=== PATIENT | male | born 1965 | race Caucasian/White ===

== ENCOUNTER 2025-11-03 11:48 | Inpatient (IN) ==
--- NOTE | 2025-11-03 12:14 | Emergency Department Note ---
Impression & Plan Pulmonary edema, New onset left bundle branch block (LBBB), Elevated troponin I level, CARTAGENA (dyspnea on exertion) ED Provider Note NAME: FEDERICO GRISSOM AGE: 60 SEX: M : 1965 ARRIVES VIA: Walk-In INFORMANT: Patient, ED PROVIDER(S): Jose C Carr DO CHIEF COMPLAINT: Shortness of breath HPI: The patient is a 60-year-old male who presented to the emergency department for an evaluation of shortness of breath. The patient's been experiencing shortness of breath with exertion over the last several days. The patient states he does have some shortness of breath with lying flat. The patient had an appointment with his family doctor today. He went to see his family doctor and was sent to the emergency department for further evaluation. The patient denies having any fever or cough. He denies having any leg swelling. The patient had an EKG done which prompted the patient to be sent to the emergency department. ROS: See above HPI for pertinent positives & negatives. A total of 10 systems reviewed and were otherwise negative. PAST MEDICAL HISTORY: See Below PAST SURGICAL HISTORY: See Below FAMILY HISTORY: See Below SOCIAL HISTORY: See Below HOME MEDICATIONS: See Below ALLERGIES: See Below VITALS: See Below PHYSICAL EXAMINATION: GENERAL: Patient is awake alert in no acute distress patient is resting comfortably and showing no signs of anxiety EYES: The conjunctivae are clear. The pupils are round and reactive. EARS, NOSE, MOUTH AND THROAT: The nose is without any evidence of any deformity. NECK: The neck is nontender and supple. RESPIRATORY: Normal respiratory effort is noted there is no evidence of wheezing rhonchi or rales CARDIOVASCULAR: Regular rate and rhythm noted there no murmurs rubs or gallops normal S1 normal S2. GASTROINTESTINAL: The abdomen is soft. Abdomen is nontender. MUSCULOSKELETAL/EXTREMITIES: There is no evidence of gross deformity full range of motion is noted in the hips and shoulders. SKIN: There is no obvious evidence of any rash. There are no petechiae, pallor or cyanosis noted. NEUROLOGIC: Patient is awake alert and oriented x3 MEDICAL DECISION MAKING: The patient is a 60-year-old male who presented to the emergency department for an evaluation of difficulty breathing. The patient's been experiencing dyspnea on exertion as well as some orthopnea over the course of the last several weeks. The patient was seen as an outpatient by his newly established primary care physician. He had an abnormal EKG and was sent to the emergency department. The patient was found of a new onset left bundle branch block. The patient was found have an elevated creatinine although it is unclear what his baseline was before this. I discussed the patient's laboratory and radiographic studies with him. He was treated with beta-blockers Lasix and aspirin in the emergency department. He still requires significant blood pressure management. Given his findings I do feel that he would be a better candidate for inpatient management. I discussed his condition with the on-call [facility] hospitalist group as well as the on-call [facility] master cosmetologist. They have agreed to evaluate the patient in the emergency department for further management and disposition. Triage Nursing notes reviewed. Prior medical records reviewed Vital Signs: reviewed and remarkable for elevated blood pressure. Differential diagnosis: Reactive airway disease, pneumonia, pneumothorax, COPD, CHF, infections, cardiac ischemia, pulmonary embolism, musculoskeletal, gastrointestinal, as well as other pathologies. ER treatment provided: See below Diagnostics interpreted by me: ECG: EKG was obtained in the emergency department. My interpretation is sinus tachycardia at 105 bpm. PVCs were noted. Left bundle branch block pattern was appreciated. This was compared to a tracing from May 19, 2006. The left bundle branch block is new compared to the previous tracing. Cardiac Monitoring: An order was placed for continuous cardiac monitoring. The monitor shows a rate of 85 bpm with sinus rhythm. Laboratory studies: As stated above and show below. Imaging studies: See below. Radiographic imaging was reviewed by myself Consultation(s): I discussed this case with Dr. Rodriguez who is on-call for the [facility] hospitalist group. I discussed this case with Dr. Jorgensen who is on for the [facility] cardiology group. ED COURSE: Procedures: none Critical Care: I have personally spent greater than 35 minutes of critical care time in the direct management of this patient. This includes bedside care, interpretation of diagnostic studies, and testing, discussion with consultants, patient, and family members, and other required patient management activities. This 35 minutes is in excess of all separately billable procedures. Past Med/Surg History Problem List (Updated 11/03/25 @ 14:12 by TRISHA Calloway) Hypertensive emergency CARTAGENA (dyspnea on exertion) (Acute) Elevated troponin I level (Acute) New onset left bundle branch block (LBBB) (Acute) Pulmonary edema (Acute) Social History Smoking Status: Never smoker Preferred Language: Turkish Feels Safe at Home: Yes Allergies Allergies Allergy/AdvReac Type Severity Reaction Status Date / Time [id number] Allergy Unknown Uncoded 01/02/03 14:13 Home Meds Home Medications Medication Instructions Recorded Confirmed None (Patient States No Home Meds) ##0 05/19/06 Results & Data (ED) Vital Signs Vital Signs - 24 hr 11/03/25 11:51 11/03/25 12:52 11/03/25 13:00 Pulse Rate 108 H 98 H Pulse Rate [Apical] 98 H Respiratory Rate 18 18 Respiratory Effort / Characteristics Non-Labored Spontaneous Respiratory Depth Normal Blood Pressure 210/136 H Blood Pressure [Left Arm] 178/136 H Blood Pressure Mean 160 Blood Pressure Mean [Left Arm] 150 Blood Pressure Position [Left Arm] Sitting Pulse Oximetry 98 97 Oxygen Delivery Method Room Air Room Air Sepsis Recent Fever Within 48 Hours No Sepsis New/Unexplained Change in Mental Status No Sepsis Action Taken by Nursing No Action Required 11/03/25 13:31 Pulse Rate 101 H Pulse Rate [Apical] Respiratory Rate Respiratory Effort / Characteristics Respiratory Depth Blood Pressure 185/151 H Blood Pressure [Left Arm] Blood Pressure Mean Blood Pressure Mean [Left Arm] Blood Pressure Position [Left Arm] Pulse Oximetry Oxygen Delivery Method Sepsis Recent Fever Within 48 Hours Sepsis New/Unexplained Change in Mental Status Sepsis Action Taken by Assisted Medications Current Medication List: was personally reviewed by me Laboratory Data Attestation: I reviewed the patient's lab results. 11/03/25 12:24 11/03/25 12:24 Lab Results 11/03/25 11/03/25 Range/Units 12:24 14:05 WBC 10.06 (4.8-10.8) K/ul RBC 6.20 H (4.70-6.10) M/uL Hgb 17.6 (14.0-18.0) g/dL Hct 53.1 H (42.0-52.0) % MCV 85.6 (80.0-100.0) fL MCH 28.4 (25.0-34.0) pg MCHC 33.1 (32.0-36.0) g/dL RDW Std Deviation 42.0 (36.4-46.3) fL RDW Coeff of Janeth 14.0 (11.5-14.5) % Plt Count 270 (130-400) K/uL MPV 9.9 (9.4-12.4) fL Immature Gran % (Auto) 0.4 % Neut % (Auto) 74.7 % Lymph % (Auto) 16.4 % [place] % (Auto) 7.3 % Eos % (Auto) 0.4 % Baso % (Auto) 0.8 % Neut # (Auto) 7.52 H (1.40-6.50) K/uL Lymph # (Auto) 1.65 (1.20-3.40) K/uL [place] # (Auto) 0.73 H (0.11-0.59) K/uL Eos # (Auto) 0.04 (0.00-0.50) K/uL Baso # (Auto) 0.08 (0.00-0.20) K/uL Immature Gran # (Auto) 0.04 (0.01-0.20) K/uL PT 11.1 (9.0-12.0) Seconds INR 1.1 (0.9-1.1) APTT 25 (21-31) Seconds PTT Ratio 0.9 Sodium 141 (136-145) mmol/L Potassium 4.7 (3.5-5.1) mmol/L Chloride 109 H (98-107) mmol/L Carbon Dioxide 24 (21-32) mmol/L Anion Gap 8 (3-11) BUN 35 H (6-23) mg/dl Creatinine 2.04 H (0.6-1.4) mg/dl Est Cr Clr Drug Dosing 42.6 ml/min eGFR 37.08 BUN/Creatinine Ratio 17.2 (10-20) Glucose 122 H (70-99(Fasting)) mg/dl Calcium 9.5 (8.6-10.3) mg/dl Total Bilirubin 0.9 (0.2-1.0) mg/dl AST 18 (13-39) U/L ALT 35 (7-52) U/L Alkaline Phosphatase 65 (34-104) U/L Troponin I High Sens 88.7 H* 101.8 H* (0-20) pg/ml B-Natriuretic Peptide 1577 H (0-100) pg/ml Total Protein 6.7 (6.0-8.3) gm/dl Albumin 4.1 (3.4-5.0) gm/dl Globulin 2.6 (2.5-4.0) gm/dl Albumin/Globulin Ratio 1.6 (0.9-2) Lipase 26 (11-82) U/L Administered Medications Nitroglycerin (Nitroglycerin 2% Ointment 30gm Tube) 1 inch EXT Q6H ALEXANDER Stop: 12/03/25 14:29 Last Admin: 11/03/25 15:02 Dose: 1 inch Documented By: QGV Discontinued Medications Aspirin (Aspirin Chew 324 Mg) 324 mg PO NOW STA Stop: 11/03/25 13:27 Last Admin: 11/03/25 13:31 Dose: 324 mg Documented By: QGV Furosemide (Furosemide 40 Mg/4 Ml Vial) 40 mg IV ONE ONE Stop: 11/03/25 13:19 Last Admin: 11/03/25 13:30 Dose: 40 mg Documented By: QGV Labetalol HCl (Labetalol Hcl Iv 5 Mg/Ml 20ml) 10 mg IV NOW STA Stop: 11/03/25 13:27 Last Admin: 11/03/25 13:31 Dose: 10 mg Documented By: QGV Imaging Data Attestation: I personally reviewed and interpreted this imaging study as follows: My Impression: 1 view chest x-ray was obtained in the emergency department. My interpretation is cardiomegaly with mild volume overload, final report below. Radiologist's Impression: Chest X-Ray 11/03/25 12:00 SINGLE VIEW CHEST CLINICAL HISTORY: Chest pain FINDINGS: An AP, portable, upright chest radiograph is compared to study dated 05/19/2006. The heart is enlarged. There is pulmonary vascular congestion. Bilateral airspace opacities likely representing interstitial interstitial edema. Trace pleural effusions are suspected. There are scattered calcified granulomas. No pneumothorax is seen. The skeletal structures are osteopenic. The bony thorax is grossly intact. IMPRESSION: 1. Cardiomegaly with evidence of congestive failure. 2. Bilateral airspace opacities likely represent mild interstitial edema. Correlate clinically for evidence of a superimposed pneumonia. Radiographic follow-up to resolution is recommended. 3. Suspect trace pleural effusions. ACT 112: Negative or not required by law. Electronically signed by: Ranjit Hunter M.D. 11/03/2025 1:13 PM Discharge Plan Visit Data Chief Complaint: Abnormal Labs/Diagnostic Testing Stated Complaint: TESTING DOC REFERRAL ED Provider: Jose C Carr Discharge Problem: Pulmonary edema, New onset left bundle branch block (LBBB), Elevated troponin I level, CARTAGENA (dyspnea on exertion) Patient Disposition: Admitted As Inpatient Condition: Fair Discharge Instructions Interventions: ED Discharge Assessment Last Done: 11/03/25 14:49
[2025-11-03 13:01] LABS: Hematocrit (blood only) 53.1 % (42.0-52.0); Hemoglobin 17.6 g/dL (14.0-18.0); Immature Granulocytes # (auto) 0.04 K/uL (0.01-0.20); Immature Granulocytes % (auto) 0.4 %; Mean Corpuscular Hemoglobin 28.4 pg (25.0-34.0); Mean Corpuscular Volume 85.6 fL (80.0-100.0); Platelet Count 270 K/uL (130-400); RDW Standard Deviation 42.0 fL (36.4-46.3); Red Blood Count 6.20 M/uL (4.70-6.10); White Blood Count 10.06 K/ul (4.8-10.8)
[2025-11-03 13:06] LABS: Alanine Aminotransferase 35.0 U/L (7-52); Albumin Globulin Ratio 1.6 (0.9-2); Albumin Level 4.1 gm/dl (3.4-5.0); Alkaline Phosphatase 65.0 U/L (34-104); Anion Gap 8.0 (3-11); Bilirubin,Total 0.9 mg/dl (0.2-1.0); Blood Urea Nitrogen 35.0 mg/dl (6-23); Calcium 9.5 mg/dl (8.6-10.3); Carbon Dioxide 24.0 mmol/L (21-32); Chloride 109.0 mmol/L (98-107); Creatinine Clr Calc Pharmacy 42.6 ml/min; Globulin 2.6 gm/dl (2.5-4.0); Glucose 122.0 mg/dl (70-99(Fasting)); Lipase 26.0 U/L (11-82); Potassium 4.7 mmol/L (3.5-5.1); Sodium 141.0 mmol/L (136-145); Total Protein 6.7 gm/dl (6.0-8.3)
[2025-11-03 13:13] LABS: INR 1.1 (0.9-1.1); Partial Thromboplastin Time 25 Seconds (21-31); Prothrombin Time 11.1 Seconds (9.0-12.0)
--- NOTE | 2025-11-03 13:14 | XRay Report ---
SINGLE VIEW CHEST CLINICAL HISTORY: Chest pain FINDINGS: An AP, portable, upright chest radiograph is compared to study dated 05/19/2006. The heart i s enlarged. There is pulmonary vascular congestion. Bilateral airspace opacities likely representing interstitial interstitial edema. Trace pleural effusions are suspected. There are scattered calcified granulomas. No pneumothorax is seen. The skeletal structures are osteopenic. The bony thorax is mazin sly intact. IMPRESSION: 1. Cardiomegaly with evidence of congestive failure. 2. Bilateral airspace opacities likely represent mild interstitial edema. Correlate clinically for ev idence of a superimposed pneumonia. Radiographic follow-up to resolution is recommended. 3. Suspect trace pleural effusions. ACT 112: Negative or not required by law. Electronically signed by: Ranjit Hunter M.D. 11/03/2025 1:13 PM
[2025-11-03] MEDS: FUROSEMIDE 40 MG/4 ML VIAL IV ONE ×2 (13:30→23:25)
[2025-11-03] MEDS: ASPIRIN CHEW 324 MG PO STA (13:31)
[2025-11-03] MEDS: LABETALOL HCL IV 5 MG/ML 20ML IV STA (13:31)
--- NOTE | 2025-11-03 14:12 | History & Physical Report ---
Date of Service November 03, 2025 Assessment & Plan (1) CARTAGENA (dyspnea on exertion): (2) Pulmonary edema: (3) Elevated troponin I level: (4) New onset left bundle branch block (LBBB): (5) Hypertensive emergency: Plan: Patient is a 60 year old M with no past medical history presenting with shortness of breath on exertion for several months that has worsened. He saw a PCP today and was sent here for a questionable EKG in PCP office. He has not received medical care in about 10 years and takes no medications. He reports feeling short of breath with exertion, sometimes when ambulating, listing heavy items, or when climbing stairs. No chest pain, swelling, cough, headache, dizziness, palpitations,nausea, back or shoulder pain. 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 Symptoms last a few minutes and self-resolve when he rests. Today, he reports feeling anxious, mostly since he is in the hospital. #Dyspnea on exertion 2/2 pulmonary edema #Elevated Troponin r/o ACS #New Left Bundle Branch Block * Admit to PCU for additional management * CARTAGENA x several months, no CP, tachycardic, hypertensive, no hx or PCP follow up; Chest Xray showing CHF, interstitial edema, poss trace pleural effusions * BNP 1577-> Lasix 40 mg x 1 given in ED-> will re-evaluate need for additional diuresis * Initial EKG showing sinus tachy 105 bpm,poss left atrial enlarge, new LBBB, QTc 481, poss anterior infarct; no CP; repeat EKG showing NSR, rate 84 bpm, LA enlarge, LBBB, QTc 491 * Trop 88-> 101-> trend Q6H * Echo showing LVEF 15-20%, Grade II diastolic dysfunction, moderate 2-3 MR, severe global hypokinesis of LV * Cardiology consult ordered; discussed case w/ Dasha James PA-C via [place] text-> Nitro paste started * Metoprolol tartrate 25 mg BID ordered * LBBB w/ possible underlying ACS/CAD; ASA load given in ED-> will start ASA 81 mg tomorrow * Will check lipids, A1C w/ morning labs * Discharge planning: Will need PCP follow-up at d/c #Hypertensive Emergency #[place] * Elevated BP 210/136-> 185/151 in ED; no home antihypertensives * Labetalol 10 mg given w/ some clinical improvement * Will slowly titrate down for goal SBP <170 * EOD present w/ Creatinine 2.04, GFR 37 w/ no available baseline renal functioning * Will check UA now * Follow BMP with morning labs DVT Ppx: Heparin Code status: Full PCP: NO PCP Dispo: Admit Patient seen in collaboration with Dr. Rodriguez. Please see addendum.I spent a total of 65 minutes coordinating, documenting and providing care for this patient excluding time spent in the performance of separately billed services or time spent by another provider/QHP. History of Present Illness Primary Care Provider: Edyta Leal MD Patient is a 60 year old M with no past medical history presenting with shortness of breath on exertion for several months that has worsened. He saw a PCP today and was sent here for a questionable EKG in PCP office. He has not received medical care in about 10 years and takes no medications. He reports feeling short of breath with exertion, sometimes when ambulating, listing heavy items, or when climbing stairs. No chest pain, swelling, cough, headache, dizziness, palpitations,nausea, back or shoulder pain. 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 Symptoms last a few minutes and self-resolve when he rests. Today, he reports feeling anxious, mostly since he is in the hospital. Denies fever, chills, weight loss, weakness, headache, cognitive changes, vision/hearing changes, chest pain, swelling,urinary concerns, N/V/D, joint swelling/pain, ambulation difficulty, skin rashes, lesions, bleeding, bruising. Discussed with ED provider imaging findings, labs, and management in ED. Admission consultation for r/o ACS and management HTN emergency. In the emergency department, patient was hypertensive with evidence of EOD. BP 210/136 on admission to ED and was given Labetalol with some clinical improvement down to 185/138. [place] noted on labs with elevated creatinine to 2.04 and low GFR to 37. Troponin elevated to 88 without report of chest pain. EKG initially showing sinus tachycardia with 105 bpm,poss left atrial enlarge, new LBBB, QTc 481, poss anterior infarct. Repeat EKG showing NSR, rate 84 bpm, LA enlarge, LBBB, QTc 491. Questionable EKG findings, particularly new LBBB. On my read, possible ST segment elevation, although EKG read showing anterior infarct age indeterminate. Cardiology consult ordered. Discussed case with Dasha James PA-C via [place] text. ASA load given in the ED. Chest Xray showed: 1. cardiomegaly with evidence of congestive failure, 2. bilateral airspace opacities likely representing mild interstitial edema, 3. possible superimposed pneumonia, 4. Suspect trace pleural effusions. No leukocytosis on lab workup. Lasix 40 mg IV was given x 1 in the ED. History obtained primarily from the patient and via hospitalization record. Allergies Allergy/AdvReac Type Severity Reaction Status Date / Time [id number] Allergy Unknown Uncoded 01/02/03 14:13 Past Med/Surg History Problem List Hypertensive emergency CARTAGENA (dyspnea on exertion) (Acute) Elevated troponin I level (Acute) New onset left bundle branch block (LBBB) (Acute) Pulmonary edema (Acute) Social History Smoking Status: Never smoker Second Hand Exposure: No; Do You Dip or Chew Tobacco: No; Hx Alcohol Use: No Hx Substance Use: No Preferred Language: Slovak Communication Ability: Effective Museum Host/Hostess Required: No Beliefs That Will Affect Care: None Current Living Situation: Alone Feels Safe at Home: Yes Assistive Devices: Glasses Review of Systems Review of Systems: All systems reviewed & are unremarkable except as noted in HPI & below Physical Exam Physical Exam: VITALS: Reviewed. WEIGHT/BMI reviewed. GEN: Healthy appearing, well-developed, NAD, anxious PSYCH: Good Judgment. AOx3. Normal memory, mood, and affect. HEENT -Head: NC/AT; -Eyes: PERRL, EOMI. No discharge or redn ess; -Ears: External ears are normal. -Nose: Normal nares. -Mouth and throat: MMM. Normal gums, muc azar, palate,. Good dentition. NECK: Supple, with no masses. CV: S1, S2, no murmur or extra beats, no swelling, no JVD LUNGS: Crackles to Left base otherwise clear, no cough, unlabored ABD: Soft, NT/ND, Active BS x4, no masses or organomegaly. : N/A SKIN: Warm, well perfused. No skin rashes or abnormal lesions. MSK: No deformities, Normal gait. EXT: No clubbing, cyanosis, or edema. NEURO: CN II-XII grossly intact, speech clear, No focal deficits. Results & Data Results & Data Vital Signs (Past 12 Hours) Vital Signs Pulse Pulse Resp BP BP Pulse Ox O2 Del Method 11/03/25 13:31 101 H 185/151 H 11/03/25 13:00 98 H 18 178/136 H 97 Room Air 11/03/25 12:52 98 H 11/03/25 11:51 108 H 18 210/136 H 98 Room Air Laboratory Results Short CBC 11/03/25 Range/Units 12:24 WBC 10.06 (4.8-10.8) K/ul Hgb 17.6 (14.0-18.0) g/dL Hct 53.1 H (42.0-52.0) % Plt Count 270 (130-400) K/uL [facility] 11/03/25 12:24 Sodium 141 Potassium 4.7 Chloride 109 H Carbon Dioxide 24 BUN 35 H Creatinine 2.04 H Glucose 122 H Calcium 9.5 Liver Function 11/03/25 Range/Units 12:24 Total Bilirubin 0.9 (0.2-1.0) mg/dl AST 18 (13-39) U/L ALT 35 (7-52) U/L Alkaline Phosphatase 65 (34-104) U/L Albumin 4.1 (3.4-5.0) gm/dl Diagnostic Findings Chest X-Ray 11/03/25 12:00 SINGLE VIEW CHEST CLINICAL HISTORY: Chest pain FINDINGS: An AP, portable, upright chest radiograph is compared to study dated 05/19/2006. The heart is enlarged. There is pulmonary vascular congestion. Bilateral airspace opacities likely representing interstitial interstitial edema. Trace pleural effusions are suspected. There are scattered calcified granulomas. No pneumothorax is seen. The skeletal structures are osteopenic. The bony thorax is grossly intact. IMPRESSION: 1. Cardiomegaly with evidence of congestive failure. 2. Bilateral airspace opacities likely represent mild interstitial edema. Correlate clinically for evidence of a superimposed pneumonia. Radiographic follow-up to resolution is recommended. 3. Suspect trace pleural effusions. ACT 112: Negative or not required by law. Electronically signed by: Ranjit Hunter M.D. 11/03/2025 1:13 PM Code Status & VTE Plan VTE Prophylaxis Plan VTE Prophylaxis will be ordered: Yes
--- NOTE | 2025-11-03 14:12 | Communication Note ---
Date of Service: November 03, 2025 Attending Addendum: Case reviewed with the advanced practitioner. I have personally performed a history and physical examination on the patient. I have reviewed the advanced practitioner's documentation on the date of service referenced in note, and I agree with, and take responsibility for the plan of care. please refer to her notes for full details patient seen and examined, records reviewed by myself as well on exam, patient seen resting in bed, not in distress, somewhat anxious denies chest pain has mild shortness of breath, worse with exertion, no cough/sputum, fever/chills no dizziness, nausea/vomiting, palpitations no other symptoms VS noted and reviewed oriented x3, not in distress, speaks in sentences with no effort nor accessory muscle use normal rate, regular rhythm, no murmurs very mild rales at the bases non distended, soft, nontender no bipedal edema, erythema, warmth no neuro deficits all labs, imaging noted and reviewed ASSESSMENT AND PLAN> HYPERTENSIVE URGENCY WITH PULMONARY EDEMA r/o CHF Labetalol 10mg IV and Lasix 40mg IV given at the ER start Metoprolol 25mg BID BNP, Echo TROPONIN ELEVATION, POSSIBLE NEW LBBB no old EKG for comparison Trop 80--> 2nd pending no chest pain ASA 324mg po given initiate Metoprolol, ASA 81mg po daily echo cardiology consulted POSSIBLE CKD crea 2.0 check UA other diagnoses and plan of care as per advanced practitioner's notes I spent a total of 50 minutes coordinating, documenting, and providing care for this patient, excluding time spent in the performance of separately billed services or time spent by another provider/QHP. Curt Rodriguez MD,
--- NOTE | 2025-11-03 14:32 | Cardiology Consultation ---
Date of Consultation November 03, 2025 Assessment & Plan (1) Hypertensive emergency: (2) New onset left bundle branch block (LBBB): (3) Elevated troponin I level: (4) CARTAGENA (dyspnea on exertion): Plan Patient is a 60 year old male admitted to [facility] for SOB and hypertensive emerg ency. No known medical problems as he does not go to the doctors. Symptoms present for several months, but worsening recently with increased dyspnea with minimal exertion. He went to see family physician today and found to be hypertensive with new LBBB on his EKG and directed to [place] ER for evaluation. Creatinine elevated at 2.0 on admission. HS troponin elevated at 88 EKG with new LBBB No chest pain reported. Hypertensive emergency - possible new hypertensive cardiomyopathy -Treated with IV labetalol in the ER -start metoprolol tartrate tonight - ordered on admission. -Start topical nitrates -Echocardiogram ordered -ASA 81 mg daily -Avoid nephrotoxic agents with creatinine of 2.0 - no JENNIFER/ARB New LBBB -echocardiogram pending -No chest pain -HS troponin at 88 - trend -ASA added -Lipids in AM and likely add statin [place] - baseline creatinine unknown -monitor Await final echo and BP response to medical therapies. Findings and exam concerning for hypertensive cardiomyopathy Further recommendations pending discussion with Dr. Jorgensen and review of imaging. Case discussed with Dr. Jorgensen. I spent a total of 60 minutes on the date of service in preparation, delivery, and documentation of the care provided to this patient, excluding any time spent in the performance of separately billed services. Dasha James PA-C Department of Cardiology, [facility] This chart was completed in part utilizing Speech Voice Recognition Software. Grammatical errors, random word insertions, pronoun errors, and incomplete sentences are an occasional consequence of this system due to software limitations, ambient noise, and hardware issues. Any formal questions or concerns about the content, text, or information contained within the body of this dictation should be directly addressed to the provider for clarification. Supervising Physician Co-Signing Physician Notes Patient was seen and personally examined. Full assessment and plan as outlined by advanced provider as above. Care and management personally endorsed. 60-year-old male with remote history of hypertension with long lapse in medical care sought a medical evaluation with symptoms of several months duration increasing dyspnea and fatigue. EKG with newly observed left bundle branch block. ER evaluation notes dilated left ventricle with congestive heart failure on chest x-ray Severe systolic and diastolic hypertension. Patient minimally symptomatic at rest Echocardiogram demonstrates mildly dilated left ventricle with dyssynergy septal contractility secondary to conduction abnormality severe diffuse hypokinesis EF 15 to 20% with moderate mitral insufficiency. Exam not notable for profound volume overload Suspect hypertensive cardiomyopathy, hypertensive renal disease complicated by poor cardiac output Laboratory studies notable for renal insufficiency Patient has received IV labetalol in the ER, topical nitrates added Oral beta-andre ordered Will add oral hydralazine as well for afterload reduction History of Present Illness Reason for Consultation: Hypertensive emergency; new LBBB; SOB Requesting Physician: [facility] Hospitalist Attending Physician: Dr. Jorgensen History of Present Illness Patient is a 60 year old male who was sent to [facility] from [facility] office today for progressive SOB, hypertension, abnormal EKG. EKG at PCP office demonstrating sinus tachycardia with conduction delay consistent with LBBB. No prior EKG for comparison. He was referred to the ER due to complaints and findings. Upon arrival to the ER, repeat EKG demonstrated NSR with LBBB (new?) - no prior EKG for comparison before today He was hypertensive and started on IV labetalol. HS troponin initially elevated at 88. Started on ASA No chest pain reported on admission. Chest xray with cardiomegaly and mild pulm vascular congestion. Patient has not been seen by a physician in > 10 years. He was told he had hypertension in the past but never treated. No known medical problems or allergies. No history of alcohol or tobacco abuse. He is typically very active. In June, he describes an episode where he was "tubing" down a [employer] and had sudden onset SOB/chest tightness. He was unable to catch his breath. Symptoms persisted for several hours and then slowly im proved. Since this time, patient admits to being more SOB with exertional activities. Over the last few weeks, his symptoms became more pronounced and now having dyspnea with climbing one flight of steps or walking short distances. No exertional chest pain. No sudden weight gain. He admits to changing his diet recently and lost 10 lbs through diet. No orthopnea, PND or edema. No fever, cough, chills. At time of evaluation in the ER, his BP has trended down slightly, along wiht his HR after the labetolol. At rest, he is comfortable, but admits to dyspnea upon ambulation to the restroom. No dizziness. No palpitations. Echo has been ordered and pending Allergies Allergy/AdvReac Type Severity Reaction Status Date / Time [id number] Allergy Unknown Uncoded 01/02/03 14:13 Home Medications Medication Instructions Recorded Confirmed Type None (Patient States No Home Meds) ##0 05/19/06 History Patient History Social History Smoking Status: Never smoker Preferred Language: Nepalese Feels Safe at Home: Yes Review of Systems Review of Systems: All systems reviewed & are unremarkable except as noted in HPI & below Physical Exam Constitutional: WD/WN, vitals as above well developed; no acute distress Respiratory: no labored breathing Auscultation: + diminished lung sounds; no crackles and no rales Cardiovascular: Rate/Rhythm: regular rhythm and + tachycardic Heart Sounds: no murmur Vessels: + JVD Extremities: + edema (trace pretibial edema) Gastrointestinal (Abdomen): normal bowel sounds, soft, nontender, no hepatosplenomegaly Neurologic: PERRL, EOMI, accommodation nl, no face palsy, no dysarthria Results & Data Vital Signs (Past 12 Hours) Vital Signs Pulse Pulse Resp BP BP Pulse Ox O2 Del Method 11/03/25 13:31 101 H 185/151 H 11/03/25 13:00 98 H 18 178/136 H 97 Room Air 11/03/25 12:52 98 H 11/03/25 11:51 108 H 18 210/136 H 98 Room Air Laboratory Results Cardiac Enzymes 11/03/25 11/03/25 Range/Units 12:24 14:05 AST 18 (13-39) U/L Troponin I High Sens 88.7 H* (0-20) pg/ml B-Natriuretic Peptide 1577 H (0-100) pg/ml Coagulation 11/03/25 11/03/25 Range/Units 12:24 14:05 PT 11.1 (9.0-12.0) Seconds APTT 25 (21-31) Seconds B-Natriuretic Peptide 1577 H (0-100) pg/ml CBC 11/03/25 Range/Units 12:24 WBC 10.06 (4.8-10.8) K/ul RBC 6.20 H (4.70-6.10) M/uL Hgb 17.6 (14.0-18.0) g/dL Hct 53.1 H (42.0-52.0) % Plt Count 270 (130-400) K/uL Neut # (Auto) 7.52 H (1.40-6.50) K/uL Lymph # (Auto) 1.65 (1.20-3.40) K/uL [place] # (Auto) 0.73 H (0.11-0.59) K/uL Eos # (Auto) 0.04 (0.00-0.50) K/uL Baso # (Auto) 0.08 (0.00-0.20) K/uL Comprehensive Metabolic Panel 11/03/25 Range/Units 12:24 Sodium 141 (136-145) mmol/L Potassium 4.7 (3.5-5.1) mmol/L Chloride 109 H (98-107) mmol/L Carbon Dioxide 24 (21-32) mmol/L BUN 35 H (6-23) mg/dl Creatinine 2.04 H (0.6-1.4) mg/dl Glucose 122 H (70-99(Fasting)) mg/dl Calcium 9.5 (8.6-10.3) mg/dl AST 18 (13-39) U/L ALT 35 (7-52) U/L Alkaline Phosphatase 65 (34-104) U/L Total Protein 6.7 (6.0-8.3) gm/dl Albumin 4.1 (3.4-5.0) gm/dl Intake and Output 11/02/25 11/03/25 11/03/25 22:59 06:59 14:59 Other: Weight 91.5 kg Weight Measurement Method Chair Scale Patient Weight 11/04/25 06:59 Weight 91.5 kg Diagnostic Findings Telemetry reviewed: NSR/Sinus tachycardia with intraventricular conduction delay. EKG reviewed from admission: NSR with intraventricular conduction delay consistent with LBBB No prior EKG's for comparison Laboratory Results WBC 10.06 K/ul (4.8-10.8) 11/03/25 12:24 RBC 6.20 M/uL (4.70-6.10) H 11/03/25 12:24 Hgb 17.6 g/dL (14.0-18.0) 11/03/25 12:24 Hct 53.1 % (42.0-52.0) H 11/03/25 12:24 MCV 85.6 fL (80.0-100.0) 11/03/25 12:24 MCH 28.4 pg (25.0-34.0) 11/03/25 12:24 MCHC 33.1 g/dL (32.0-36.0) 11/03/25 12:24 RDW Std Deviation 42.0 fL (36.4-46.3) 11/03/25 12:24 RDW Coeff of Janeth 14.0 % (11.5-14.5) 11/03/25 12:24 Plt Count 270 K/uL (130-400) 11/03/25 12:24 MPV 9.9 fL (9.4-12.4) 11/03/25 12:24 Immature Gran % (Auto) 0.4 % 11/03/25 12: Neut % (Auto) 74.7 % 11/03/25 12:24 Lymph % (Auto) 16.4 % 11/03/25 12:24 [place] % (Auto) 7.3 % 11/03/25 12:24 Eos % (Auto) 0.4 % 11/03/25 12:24 Baso % (Auto) 0.8 % 11/03/25 12:24 Neut # (Auto) 7.52 K/uL (1.40-6.50) H 11/03/25 12:24 Lymph # (Auto) 1.65 K/uL (1.20-3.40) 11/03/25 12:24 [place] # (Auto) 0.73 K/uL (0.11-0.59) H 11/03/25 12:24 Eos # (Auto) 0.04 K/uL (0.00-0.50) 11/03/25 12:24 Baso # (Auto) 0.08 K/uL (0.00-0.20) 11/03/25 12:24 Immature Gran # (Auto) 0.04 K/uL (0.01-0.20) 11/03/25 12:24 PT 11.1 Seconds (9.0-12.0) 11/03/25 12:24 INR 1.1 (0.9-1.1) 11/03/25 12:24 APTT 25 Seconds (21-31) 11/03/25 12:24 PTT Ratio 0.9 11/03/25 12:24 Sodium 141 mmol/L (136-145) 11/03/25 12:24 Potassium 4.7 mmol/L (3.5-5.1) 11/03/25 12:24 Chloride 109 mmol/L (98-107) H 11/03/25 12:24 Carbon Dioxide 24 mmol/L (21-32) 11/03/25 12:24 Anion Gap 8 (3-11) 11/03/25 12:24 BUN 35 mg/dl (6-23) H 11/03/25 12:24 Creatinine 2.04 mg/dl (0.6-1.4) H 11/03/25 12:24 Est Cr Clr Drug Dosing 42.6 ml/min 11/03/25 12:24 eGFR 37.08 11/03/25 12:24 BUN/Creatinine Ratio 17.2 (10-20) 11/03/25 12:24 Glucose 122 mg/dl (70-99(Fasting)) H 11/03/25 12:24 Calcium 9.5 mg/dl (8.6-10.3) 11/03/25 12:24 Total Bilirubin 0.9 mg/dl (0.2-1.0) 11/03/25 12:24 AST 18 U/L (13-39) 11/03/25 12:24 ALT 35 U/L (7-52) 11/03/25 12:24 Alkaline Phosphatase 65 U/L (34-104) 11/03/25 12:24 Troponin I High Sens 101.8 pg/ml (0-20) H* 11/03/25 14:05 B-Natriuretic Peptide 1577 pg/ml (0-100) H 11/03/25 14:05 Total Protein 6.7 gm/dl (6.0-8.3) 11/03/25 12:24 Albumin 4.1 gm/dl (3.4-5.0) 11/03/25 12:24 Globulin 2.6 gm/dl (2.5-4.0) 11/03/25 12:24 Albumin/Globulin Ratio 1.6 (0.9-2) 11/03/25 12:24 Lipase 26 U/L (11-82) 11/03/25 12:24 Impressions Chest X-Ray 11/03/25 12:00 SINGLE VIEW CHEST CLINICAL HISTORY: Chest pain FINDINGS: An AP, portable, upright chest radiograph is compared to study dated 05/19/2006. The heart is enlarged. There is pulmonary vascular congestion. Bilateral airspace opacities likely representing interstitial interstitial edema. Trace pleural effusions are suspected. There are scattered calcified granulomas. No pneumothorax is seen. The skeletal structures are osteopenic. The bony thorax is grossly intact. IMPRESSION: 1. Cardiomegaly with evidence of congestive failure. 2. Bilateral airspace opacities likely represent mild interstitial edema. Correlate clinically for evidence of a superimposed pneumonia. Radiographic follow-up to resolution is recommended. 3. Suspect trace pleural effusions. ACT 112: Negative or not required by law. Electronically signed by: Ranjit Hunter M.D. 11/03/2025 1:13 PM Medications Administered Current Inpatient Medications Labetalol HCl (Labetalol Hcl Iv 5 Mg/Ml 20ml) 10 mg IV Q6H PRN PRN Reason: Hypertension SBP>170 Stop: 12/03/25 13:59 Metoprolol Tartrate (Metoprolol Tartrate 25 Mg Tab) 25 mg PO BID [facility] Stop: 12/03/25 20:59 Nitroglycerin (Nitroglycerin 2% Ointment 30gm Tube) 1 inch EXT Q6H [facility] Stop: 12/03/25 14:29 PG Care Time/CCT Total # of Minutes Spent Total Time Spent with Patient: Total time spent is greater than 50% in coordination of care (as documented) at patient's floor/unit and/or counseling patient: 60 minutes Coding Level of Care Code 81380 IN/OBS CONSULT LVL 5,80M Diagnoses Hypertensive emergency I16.1 New onset left bundle branch block (LBBB) I44.7 Elevated troponin I level R79.89 CARTAGENA (dyspnea on exertion) R06.09
[2025-11-03] MEDS: NITROGLYCERIN 2% OINTMENT 30GM TUBE EXT SCH (15:02)
[2025-11-03 15:21] LABS: Appearance Urine Clear (Clear); Bacteria Urine Automated None Seen (None Seen); Cast Urine Automated 0-2 /lpf (0-2); Epithelial Cell Urine Auto 0-2 /hpf (0-2); Glucose Urine UA Negative (Negative); RBC Urine Automated 0-2 /hpf (0-2); WBC Urine Automated 0-5 /hpf (0-5)
--- NOTE | 2025-11-03 15:22 | XCELERA ---
[id number] \\[email or web address]\[id number]
[2025-11-03] MEDS ORDERED: ACETAMINOPHEN 325 MG TAB PO PRN (15:34)
[2025-11-03] MEDS ORDERED: ALUMINUM/MAGNESIUM SUSP 30 ML UDC PO PRN (15:34)
[2025-11-03] MEDS ORDERED: POLYETHYLENE (MIRALAX) 17 GM PACK PO PRN (15:34)
[2025-11-03] MEDS ORDERED: MAGNESIUM HYDROXIDE SUSP 30 ML UDC PO PRN (15:34)
[2025-11-03] MEDS ORDERED: MELATONIN 3 MG TAB PO PRN (15:34)
[2025-11-03] MEDS: METOPROLOL SUCC 25MG EXT REL TAB PO STA (16:03)
[2025-11-03] MEDS: LORazepam Inj 0.25 MG in SYRINGE 0.125 ML IV STA (16:14)
[2025-11-03] MEDS: hydrALAZINE 10 MG TAB PO SCH (16:58)
[2025-11-03] MEDS: LABETALOL HCL IV 5 MG/ML 20ML IV PRN (19:10)
[2025-11-03] MEDS: METOPROLOL SUCC 25MG EXT REL TAB PO SCH (19:49)
[2025-11-03] MEDS ORDERED: HEPARIN SOD 5,000 UNIT/0.5 ML VIAL SQ SCH (21:00)
[2025-11-03] MEDS ORDERED: METOPROLOL TARTRATE 25 MG TAB PO SCH (21:00)
[2025-11-04 04:23] LABS: Hematocrit (blood only) 48.9 % (42.0-52.0); Hemoglobin 16.4 g/dL (14.0-18.0); Mean Corpuscular Hemoglobin 28.7 pg (25.0-34.0); Mean Corpuscular Volume 85.5 fL (80.0-100.0); Platelet Count 229 K/uL (130-400); RDW Standard Deviation 42.0 fL (36.4-46.3); Red Blood Count 5.72 M/uL (4.70-6.10); White Blood Count 8.19 K/ul (4.8-10.8)
[2025-11-04 04:40] LABS: Anion Gap 8.0 (3-11); Blood Urea Nitrogen 38.0 mg/dl (6-23); Calcium 8.9 mg/dl (8.6-10.3); Carbon Dioxide 28.0 mmol/L (21-32); Chloride 102.0 mmol/L (98-107); Cholesterol 123.0 mg/dl (0-200); Creatinine Clr Calc Pharmacy 35.9 ml/min; Glucose 104.0 mg/dl (70-99(Fasting)); HDL Cholesterol 41.0 mg/dl; Iron 44.0 mcg/dl (35-175); Potassium 3.8 mmol/L (3.5-5.1); Sodium 138.0 mmol/L (136-145); Total Iron Binding Cap Calc 358.0 mcg/dl (250-450); Transferrin 256.0 mg/dl (200-360); Transferrin (FE) Percent Satur 12.0 % (20-50); Triglycerides 92.0 mg/dl (0-150)
[2025-11-04 04:55] LABS: Thyroid Stimulating Hormone 2.42 uIu/ml (0.300-4.500)
--- NOTE | 2025-11-04 07:38 | Hospitalist Progress Note ---
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 Combined systolic and diastolic HF Patient presenting with worsening SOB CXR notes cardiomegaly with evidence of congestive failure, bilateral airspace opacities likely representing mild interstitial edema, trace pleural effusions BNP 1577 TTE revealed EF 15-20%, borderline dilation LV, mild LVH, septal motion with conduction abnormality, severe global hypokinesis of LV, trace aortic insufficiency, mod MR, grade II diastolic dysfunction Received 40mg IV lasix x2 yesterday 11/03 Cardiology consulted: appreciate recs Daily weights Monitor I&Os Hypertensive emergency Possible hypertensive cardiomyopathy BP 210/136 in ED Received IV labetalol on 11/03 Cardiology consulted: started metoprolol, nitropaste, baby aspirin, hydralazine Elevated troponin Initially elevated and downtrended x2 Likely secondary to demand ischemia in setting of HF, HTN, 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 Vega. Please see addendum. I spent a total of [ ] minutes coordinating, documenting and providing care for this patient excluding time spent in the performance of separately billed services or time spent by another provider/QHP. Admission and Anticipated Discharge Date Admission Date: November 03, 2025 Review of Systems Review of Systems: All systems reviewed & are unremarkable except as noted in HPI & below Physical Exam Physical Exam: General/Psych: WD/WN, sitting up in bed, NAD, conversing easily Head: normocephalic, atraumatic Eyes: normal inspection, PERRL, conjunctivae pink Neck: normal visual inspection, trachea midline Respiratory: normal respiratory effort, lungs clear to auscultation, no wheeze/rales/rhonchi, no accessory muscle use Cardiovascular: regular rate and rhythm, no murmur/rub/gallop Extremities: no cyanosis or clubbing, normal peripheral pulses, no BLE edema Abdomen/GI: normal bowel sounds, soft, nontender Neurologic/MSK: A+Ox3, motor strength 5/5, moves all extremities Skin: no rashes, normal color, warm and dry Results & Data Results & Data Vital Signs (Past 12 Hours) Vital Signs Temp Pulse Pulse Resp BP Pulse Ox O2 Del Method 11/04/25 06:28 180/129 H 11/04/25 01:42 37.7 C H 80 17 150/101 H 96 Room Air 11/03/25 23:26 176/130 H 11/03/25 22:19 36.5 C 80 18 169/101 H 93 Room Air 11/03/25 22:00 68 11/03/25 21:06 173/117 H Laboratory Results Short CBC 11/03/25 11/04/25 Range/Units 12:24 03:55 WBC 10.06 8.19 (4.8-10.8) K/ul Hgb 17.6 16.4 (14.0-18.0) g/dL Hct 53.1 H 48.9 (42.0-52.0) % Plt Count 270 229 (130-400) K/uL BMP 11/03/25 11/04/25 12:24 03:55 Sodium 141 138 Potassium 4.7 3.8 Chloride 109 H 102 Carbon Dioxide 24 28 BUN 35 H 38 H Creatinine 2.04 H 2.38 H D Glucose 122 H 104 H Calcium 9.5 8.9 Liver Function 11/03/25 Range/Units 12:24 Total Bilirubin 0.9 (0.2-1.0) mg/dl AST 18 (13-39) U/L ALT 35 (7-52) U/L Alkaline Phosphatase 65 (34-104) U/L Albumin 4.1 (3.4-5.0) gm/dl Urine 11/03/25 Range/Units 15:05 Urine Color Yellow Urine Appearance Clear (Clear) Urine pH 5.0 (4.5-7.5) Ur Specific [place] 1.009 (1.000-1.030) Urine Protein 2+ H (Negative) Urine Glucose (UA) Negative (Negative) I have independently reviewed and interpreted patient's labs including CBC, BMP, A1C, iron profile, lipid panel, TSH Medications Administered Current Inpatient Medications Acetaminophen (Acetaminophen 325 Mg Tab) 650 mg PO Q4H PRN PRN Reason: Pain or Fever Stop: 12/03/25 15:33 Al Hydrox/Mg Hydrox/Simethicone (Aluminum/Magnesium Susp 30 Ml Udc) 15 ml PO Q4H PRN PRN Reason: Dyspepsia Stop: 12/03/25 15:33 Aspirin (Aspirin 81 Mg Ectab) 81 mg PO QAM ALEXANDER Stop: 12/04/25 08:59 Hydralazine HCl (Hydralazine Hcl 25 Mg Tab) 25 mg PO Q6H ALEXANDER Stop: 12/04/25 00:00 Last Admin: 11/04/25 06:28 Dose: 25 mg Magnesium Hydroxide (Magnesium Hydroxide Susp 30 Ml Udc) 30 ml PO Q12H PRN PRN Reason: Constipation Stop: 12/03/25 15:33 Melatonin (Melatonin 3 Mg Tab) 3 mg PO HS PRN PRN Reason: Sleep Stop: 12/03/25 15:33 Metoprolol Succinate (Metoprolol Succ 25mg Ext Rel Tab) 25 mg PO BID ALEXANDER Stop: 12/03/25 20:59 Last Admin: 11/03/25 19:49 Dose: 25 mg Nitroglycerin (Nitroglycerin 2% Ointment 30gm Tube) 1 inch EXT Q6H ALEXANDER Stop: 12/03/25 14:29 Last Admin: 11/04/25 01:45 Dose: 1 inch Polyethylene Glycol (Polyethylene (Miralax) 17 Gm Pack) 17 gm PO DAILY PRN PRN Reason: Constipation Stop: 12/03/25 15:33
[2025-11-04 08:16] LABS: Hemoglobin A1C 5.5 % (4.5-5.6)
[2025-11-04] MEDS: ASPIRIN 81 MG ECTAB PO SCH (08:26)
[2025-11-04 08:36] VITALS: RESP 18
--- NOTE | 2025-11-04 10:52 | Nephrology Consultation ---
Date of Consultation November 04, 2025 Assessment & Plan (1) [place] (acute kidney injury): At least Stage 1 nonoliguric [place] on CKD, ischemic in origin from HTN. Baseline creatinine unknown; given changes to heart anatomy/function including EF 15%, presume at least some underlying CKD. Presented November 03 with creatinine 2.0; increased to 2.4 today after 2 doses of Lasix and full dose aspirin. No IV contrast exposure. Urinalysis notable for dipstick proteinuria and microhematuria. Serum albumin 4.1. Mild LLE edema on exam. -I have ordered urgent protein to creatinine ratio to be collected now that blood pressure is somewhat improved Agree with urgent renal ultrasound; I have canceled the renal vascular duplex as it may not be necessary and I do not want to delay this patient leaving the hospital today per his wishes SIGN OFF NOTE DX -severe combined systolic and diastolic heart failure, ejection fraction 15%, suspected hypertensive cardiomyopathy At least stage I [place] with unknown baseline renal function History of not accessing medical care for previous 19 years Hypertensive emergency - microhematuria RX >agree w/ cardiology d/c meds OTHER CARE Agree with daily weights as per cardiology Advised patient to bring upper arm home blood pressure cuff if he has 1 to nephrology follow-up appointment so that we can evaluate cuff and give teaching about self measured blood pressures Needs a basic metabolic panel 5 to 10 days to be ordered by nephro nurse - pls have neph nurse mail him a DME order for upper arm home BP cuff Omron 3 brand F/U - hospital d/c appt w/ me or my partners in [facility] in 1-2 wks Care coordinated w/ Dr Jorgensen re cardiac/ renal dxs, medications, d/c dispo; w/ SALESPERSON DRIVER Elvira re f/u appts/DME at d/c and f/u labs; w/ floor RN re clinical status; we are in agreement. 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 Severe global left ventricular hypokinesis septal motion consistent with conduction abnormality. Mild cLVH. Agree with cardiology plan for as needed Lasix 20 mg with weight gain/DTP and close-in cardiology follow-up as an outpatient (3) Hypertensive emergency: resolved from presenting blood pressures 200s over 140s down to 160s over 100s currently. Patient feels less weak and notes less exertional dyspnea. Discharge on metoprolol, hydralazine, Imdur, as needed Lasix as per cardiology Defer guideline directed medical therapy including renal angiotensin inhibition and/or SGLT2i until outpatient (4) New onset left bundle branch block (LBBB): as per cardiology History of Present Illness Reason for Consultation: hypertensive cardiomyopathy, [place] Requesting Physician: Dr Jorgensen Attending Physician: Jn Vega MD History of Present Illness 60-year-old male whom I am asked to evaluate for acute kidney injury was admitted yesterday with hypertensive emergency with new left bundle branch block and renal dysfunction and found to have new presumed hypertensive cardiomyopathy with severe LV dysfunction and ejection fraction 15 to 20%. 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 Denies prior medical history for the past 20 years except for an urgent care visit with heartburn issues, wiith intolerance to PPIs due to arthralgias. denies use of alcohol, tobacco, NSAIDs. His father had a history of renal dysfunction attributed to melanoma complications. There has been 2 doses of IV Lasix 40 mg each. He is on room air and blood pressures are 150s to 160s over 90s now. Also on hydralazine, metoprolol. He is extremely worried about pipes bursting in his home and his animals and this winter weather and insists on leaving the hospital today. He presented with exertional dyspnea and fatigue present for months to possibly a year. Tells me that over the past year he lost 18 pounds by making dietary changes such as eliminating soda and ritual evening tasty cakes with milk. denies edema. Denies new or worrisome voiding concerns including gross hematuria. No chest pain or palpitations. No syncope. No rash or fevers. Allergies Allergy/AdvReac Type Severity Reaction Status Date / Time [id number] Allergy Unknown Uncoded 01/02/03 14:13 Patient History Social History Smoking Status: Never smoker Second Hand Exposure: No; Do You Dip or Chew Tobacco: No; Hx Alcohol Use: No Hx Substance Use: No Preferred Language: Vietnamese Communication Ability: Effective Cartography Teacher Required: No Beliefs That Will Affect Care: None Current Living Situation: Alone Feels Safe at Home: Yes Assistive Devices: None Review of Systems 2 Review of Systems: All systems reviewed & are unremarkable except as noted in HPI & below Physical Exam 2 Constitutional: well developed, well nourished and cooperative; no acute distress Eyes: EOM intact bilaterally ENMT: Ears: no external ear abnormality Nose: no external nose abnormality Mouth: + dry oral mucous membranes Neck: no nuchal rigidity Respiratory: normal respiratory effort Auscultation: + diminished lung sounds Gastrointestinal (Abdomen): Inspection/Auscultation: normal bowel sounds P ercussion/Palpation: abdomen soft; abdomen nontender Musculoskeletal: Extremities: strength 5/5 throughout Skin: no rashes, warm and dry Neurologic: marcano, fluent speech, no tremor Results & Data Vital Signs (Past 12 Hours) Vital Signs Temp Pulse Pulse Resp BP Pulse Ox O2 Del Method 11/04/25 08:30 80 161/99 H 11/04/25 07:15 36.5 C 70 18 165/100 H 95 Room Air 11/04/25 06:28 180/129 H 11/04/25 05:47 71 11/04/25 01:42 37.7 C H 80 17 150/101 H 96 Room Air 11/03/25 23:26 176/130 H Laboratory Results 11/04/25 03:55 11/04/25 03:55 Diagnostic Findings cxr >> plm edema
[2025-11-04] MEDS: ISOSORBIDE MONO EXTENDED REL 30 MG TABCR PO SCH (10:56)
--- NOTE | 2025-11-04 11:11 | Cardiology Progress Note ---
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 Symptoms present for several months, but worsening recently with increased dyspnea with minimal exertion. Hypertensive emergency - new probable hypertensive cardiomyopathy with severe LV dysfunction 15-20% -Treated with IV labetalol in the ER -started metoprolol succinate 25 mg BID -Transition topical nitrates to Imdur 30 mg daily -No JENNIFER/ARB/ARNI given creatinine now 2.4 -Hydralazine added at 25 mg TID -Furosemide 20 mg PRN on discharge. [place] - nephrology consulted -renal US and renal artery duplex ordered -will need close f/u labs and f/u with nephrology New LBBB -No chest pain -HS troponin at 88 - remained flat ranging 80-115 -Not indicative of aCS -elevated troponin due to CHF and hypertensive emergency Await renal studies and discussion with nephrology. Anticipate discharge later today. Patient will need close f/u with cardiology and nephrology Further work up for cardiomyopathy will be needed but need to wait for renal function to improve. Will need labs later this week as well. Case discussed with Dr. Jorgensen. I spent a total of 45 minutes on the date of service in preparation, delivery, and documentation of the care provided to this patient, excluding any time spent in the performance of separately billed services. Dasha James PA-C Department of Cardiology, [facility] This chart was completed in part utilizing Speech Voice Recognition Software. Grammatical errors, random word insertions, pronoun errors, and incomplete sentences are an occasional consequence of this system due to software limitations, ambient noise, and hardware issues. Any formal questions or concerns about the content, text, or information contained within the body of this dictation should be directly addressed to the provider for clarification. Admission and Anticipated Discharge Date Admission Date: November 03, 2025 Supervising Physician Co-Signing Physician Notes Patient was seen and personally examined Full assessment and plan as outlined by advanced provider above. Care and management personally endorsed Patient clinically improved after gradual titration of antihypertensive therapies and diuresis. Newly diagnosed diffuse cardiomyopathy likely hypertensive in etiology with hypertensive emergency on presentation. Plan as outlined above Laboratory studies later this week with follow-up with cardiology in the next 1 to 2 weeks being arranged. Patient to represent with any new symptoms or complaints. Discussed CHF instructions Daily weights Avoid strenuous activity Care management discussed and coordinated with nephrology as well Subjective Patient resting in chair. Feeling much better compared to admission. SOB improved. BP starting to trend downward. Tolerating medications. No dizziness or lightheadedness. No chest pain. No orthopnea, PND or edema. He is requesting discharge today due to concerns about animals and heating his house. Review of Systems Review of Systems: All systems reviewed & are unremarkable except as noted in HPI & below Physical Exam Constitutional: WD/WN, vitals as above well developed; no acute distress Respiratory: no labored breathing Auscultation: + diminished lung sounds; no crackles and no rales Cardiovascular: Rate/Rhythm: regular rate and regular rhythm Heart Sounds: no murmur Vessels: + JVD Extremities: no edema Gastrointestinal (Abdomen): normal bowel sounds, soft, nontender, no hepatosplenomegaly Neurologic: PERRL, EOMI, accommodation nl, no face palsy, no dysarthria Results & Data Vital Signs (Past 12 Hours) Vital Signs Temp Pulse Pulse Resp BP Pulse Ox O2 Del Method 11/04/25 08:30 80 161/99 H 11/04/25 07:15 36.5 C 70 18 165/100 H 95 Room Air 11/04/25 06:28 180/129 H 11/04/25 05:47 71 11/04/25 01:42 37.7 C H 80 17 150/101 H 96 Room Air 11/03/25 23:26 176/130 H Laboratory Results Cardiac Enzymes 11/03/25 11/03/25 11/03/25 Range/Units 12:24 14:05 15:47 AST 18 (13-39) U/L Troponin I High Sens 88.7 H* 101.8 H* 115.5 H* (0-20) pg/ml B-Natriuretic Peptide 1577 H (0-100) pg/ml 11/03/25 11/04/25 Range/Units 22:42 03:55 AST (13-39) U/L Troponin I High Sens 109.1 H* 93.8 H* D (0-20) pg/ml B-Natriuretic Peptide (0-100) pg/ml Coagulation 11/03/25 11/03/25 Range/Units 12:24 14:05 PT 11.1 (9.0-12.0) Seconds APTT 25 (21-31) Seconds B-Natriuretic Peptide 1577 H (0-100) pg/ml Lipids 11/04/25 Range/Units 03:55 Triglycerides 92 (0-150) mg/dl Cholesterol 123 (0-200) mg/dl HDL Cholesterol 41 mg/dl Cholesterol/HDL Ratio 3.0 (0-5) CBC 11/03/25 11/04/25 Range/Units 12:24 03:55 WBC 10.06 8.19 (4.8-10.8) K/ul RBC 6.20 H 5.72 (4.70-6.10) M/uL Hgb 17.6 16.4 (14.0-18.0) g/dL Hct 53.1 H 48.9 (42.0-52.0) % Plt Count 270 229 (130-400) K/uL Neut # (Auto) 7.52 H (1.40-6.50) K/uL Lymph # (Auto) 1.65 (1.20-3.40) K/uL [place] # (Auto) 0.73 H (0.11-0.59) K/uL Eos # (Auto) 0.04 (0.00-0.50) K/uL Baso # (Auto) 0.08 (0.00-0.20) K/uL Comprehensive Metabolic Panel 11/03/25 11/04/25 Range/Units 12:24 03:55 Sodium 141 138 (136-145) mmol/L Potassium 4.7 3.8 (3.5-5.1) mmol/L Chloride 109 H 102 (98-107) mmol/L Carbon Dioxide 24 28 (21-32) mmol/L BUN 35 H 38 H (6-23) mg/dl Creatinine 2.04 H 2.38 H D (0.6-1.4) mg/dl Glucose 122 H 104 H (70-99(Fasting)) mg/dl Calcium 9.5 8.9 (8.6-10.3) mg/dl AST 18 (13-39) U/L ALT 35 (7-52) U/L Alkaline Phosphatase 65 (34-104) U/L Total Protein 6.7 (6.0-8.3) gm/dl Albumin 4.1 (3.4-5.0) gm/dl Intake and Output 11/03/25 11/04/25 11/04/25 22:59 06:59 14:59 Intake Total 200 / 200 Output Total 900 / 900 Balance 200 / -700 -900 / -700 Intake: Oral 200 / 200 Output: Urine 900 / 900 Other: # Unmeasured Voids 5 Weight 88.451 kg 88.6 kg Diagnostic Findings Telemetry reviewed: NSR in the 70-90's. Several non sustained runs of atrial tach last evening lasting 10-15 beats Echo reviewed from yesterday 11/04: LV is borderline dilated Mild concentric LVH Septal motion is consistent with conduction abnormality. Severe global hypokinesis of the LV LVEF 15-20% Trace AI Moderate 2-3+ MR Grade II diastolic dysfunction Medications Administered Current Inpatient Medications Acetaminophen (Acetaminophen 325 Mg Tab) 650 mg PO Q4H PRN PRN Reason: Pain or Fever Stop: 12/03/25 15:33 Al Hydrox/Mg Hydrox/Simethicone (Aluminum/Magnesium Susp 30 Ml Udc) 15 ml PO Q4H PRN PRN Reason: Dyspepsia Stop: 12/03/25 15:33 Aspirin (Aspirin 81 Mg Ectab) [facility] [place] [place] Stop: 12/04/25 08:59 Last Admin: 11/04/25 08:26 Dose: 81 mg Hydralazine HCl (Hydralazine Hcl 25 Mg Tab) 25 mg PO Q6H [facility] Stop: 12/04/25 00:00 Last Admin: 11/04/25 06:28 Dose: 25 mg Isosorbide Mononitrate (Isosorbide [place] Extended Rel 30 Mg Tabcr) 30 mg PO QAM [facility] Stop: 12/04/25 10:44 Last Admin: 11/04/25 10:56 Dose: 30 mg Magnesium Hydroxide (Magnesium Hydroxide Susp 30 Ml Udc) 30 ml PO Q12H PRN PRN Reason: Constipation Stop: 12/03/25 15:33 Melatonin (Melatonin 3 Mg Tab) 3 mg PO HS PRN PRN Reason: Sleep Stop: 12/03/25 15:33 Metoprolol Succinate (Metoprolol Succ 25mg Ext Rel Tab) 25 mg PO BID [facility] Stop: 12/03/25 20:59 Last Admin: 11/04/25 08:26 Dose: 25 mg Polyethylene Glycol (Polyethylene (Miralax) 17 Gm Pack) 17 gm PO DAILY PRN PRN Reason: Constipation Stop: 12/03/25 15:33 PG Care Time/CCT Total # of Minutes Spent Total Time Spent with Patient: Total time spent is greater than 50% in coordination of care (as documented) at patient's floor/unit and/or counseling patient: Coding Level of Care Code 26021 SUB INP/OBS CARE 3/50MIN Diagnoses Hypertensive emergency I16.1 New onset left bundle branch block (LBBB) I44.7 Elevated troponin I level R79.89 CARTAGENA (dyspnea on exertion) R06.09 Hypertensive cardiomyopathy I11.9; I43 Combined systolic and diastolic HF (heart failure) I50.40
--- NOTE | 2025-11-04 11:12 | Discharge Summary ---
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 Combined systolic and diastolic HF Patient presented with worsening SOB CXR noted cardiomegaly with evidence of congestive failure, bilateral airspace opacities likely representing mild interstitial edema, trace pleural effusions BNP 1577 TTE revealed EF 15-20%, borderline dilation LV, mild LVH, septal motion with conduction abnormality, severe global hypokinesis of LV, trace aortic insufficiency, mod MR, grade II diastolic dysfunction Received IV lasix while inpatient Cardiology consulted and recommend lasix PRN Not being discharged on lifevest per Cardiology Encourage daily weights Follow up with Cardiology in 1-2 weeks Hypertensive emergency Possible hypertensive cardiomyopathy BP 210/136 in ED Received IV labetalol Cardiology and Nephrology consulted: started metoprolol, Imdur, baby aspirin, hydralazine Recommend close monitoring of BP at home-> Nephrology placed DME order for home BP cuff Follow up with Cardiology and Nephrology in 1-2 weeks [place] Creat 2.0-> 2.38 today Likely ischemic from uncontrolled hypertension and presumed underlying CKD Urine protein/cr ratio elevated at 1.1 Renal ultrasound obtained-> Nephrology to follow up outpatient Repeat BMP in 5-10 days Follow up with Nephrology in 1-2 weeks Elevated troponin New LBBB EKG with newly observed LBBB but no prior to compare to Troponin elevated and downtrended x2 Likely secondary to demand ischemia in setting of HF, HTN, possible [employer] Patient seen in collaboration with Dr. Vega. Please see addendum. Notes For Next Care Provider 60 year old male with no prior PMH who was admitted at [facility] from 11/03-11/04 for SOB and was found to have hypertensive emergency, presumed cardiomyopathy secondary to HTN, combined systolic and diastolic HF, [place]. Evaluated by Cardiology and Nephrology who will closely follow patient. Discharged on multiple new cardiac medications. Encourage daily weights and BP monitoring. Medication Changes From Visit -Metoprolol succinate 25mg by mouth twice per day -Isosorbide mononitrate 30mg by mouth once per day -Hydralazine 25mg by mouth three times per day -Baby aspirin 81mg by mouth once daily -Furosemide 20mg by mouth once per day as needed for swelling/weight gain Admission HPI Per Admitting Provider Patient is a 60 year old M with no past medical history presenting with shortness of breath on exertion for several months that has worsened. He saw a PCP today and was sent here for a questionable EKG in PCP office. He has not received medical care in about 10 years and takes no medications. He reports feeling short of breath with exertion, sometimes when ambulating, listing heavy items, or when climbing stairs. No chest pain, swelling, cough, headache, dizziness, palpitations,nausea, back or shoulder pain. 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 Symptoms last a few minutes and self-resolve when he rests. Today, he reports feeling anxious, mostly since he is in the hospital. Denies fever, chills, weight loss, weakness, headache, cognitive changes, vision/hearing changes, chest pain, swelling,urinary concerns, N/V/D, joint swelling/pain, ambulation difficulty, skin rashes, lesions, bleeding, bruising. Discussed with ED provider imaging findings, labs, and management in ED. Admission consultation for r/o ACS and management HTN emergency. In the emergency department, patient was hypertensive with evidence of EOD. BP 210/136 on admission to ED and was given Labetalol with some clinical improvement down to 185/138. [place] noted on labs with elevated creatinine to 2.04 and low GFR to 37. Troponin elevated to 88 without report of chest pain. EKG initially showing sinus tachycardia with 105 bpm,poss left atrial enlarge, new LBBB, QTc 481, poss anterior infarct. Repeat EKG showing NSR, rate 84 bpm, LA enlarge, LBBB, QTc 491. Questionable EKG findings, particularly new LBBB. On my read, possible ST segment elevation, although EKG read showing anterior infarct age indeterminate. Cardiology consult ordered. Discussed case with Dasha James PA-C via [employer] text. ASA load given in the ED. Chest Xray showed: 1. cardiomegaly with evidence of congestive failure, 2. bilateral airspace opacities likely representing mild interstitial edema, 3. possible superimposed pneumonia, 4. Suspect trace pleural effusions. No leukocytosis on lab workup. Lasix 40 mg IV was given x 1 in the ED. History obtained primarily from the patient and via hospitalization record. Discharge Exam General/Psych: WD/WN, sitting up in chair, NAD, conversing easily Head: normocephalic, atraumatic Eyes: normal inspection, PERRL, conjunctivae pink Neck: normal visual inspection, trachea midline Respiratory: normal respiratory effort, lungs clear to auscultation, no w heeze/rales/rhonchi, no accessory muscle use Cardiovascular: regular rate and rhythm, no murmur/rub/gallop Extremities: no cyanosis or clubbing, normal peripheral pulses, no BLE edema Abdomen/GI: normal bowel sounds, soft, nontender Neurologic/MSK: A+Ox3, motor strength 5/5, moves all extremities Skin: no rashes, normal color, warm and dry Hospital Stay Data Consultations 11/03/25 13:33 ED Decision to Admit Stat 11/03/25 15:34 Consult Cardiology Routine 11/04/25 08:46 Consult Nephrology Routine Diagnostic Imagining Performed Chest X-Ray 11/03/25 12:00 SINGLE VIEW CHEST CLINICAL HISTORY: Chest pain FINDINGS: An AP, portable, upright chest radiograph is compared to study dated 05/19/2006. The heart is enlarged. There is pulmonary vascular congestion. Bilateral airspace opacities likely representing interstitial interstitial edema. Trace pleural effusions are suspected. There are scattered calcified granulomas. No pneumothorax is seen. The skeletal structures are osteopenic. The bony thorax is grossly intact. IMPRESSION: 1. Cardiomegaly with evidence of congestive failure. 2. Bilateral airspace opacities likely represent mild interstitial edema. Correlate clinically for evidence of a superimposed pneumonia. Radiographic follow-up to resolution is recommended. 3. Suspect trace pleural effusions. ACT 112: Negative or not required by law. Electronically signed by: Ranjit Hunter M.D. 11/03/2025 1:13 PM Discharge Instructions Given to Patient (Per Discharging Provider) You presented to the hospital with worsening shortness of breath. You were found to have very high blood pressure. You had an ultrasound of your heart which showed decreased pumping function. You were evaluated by our Cardiology team who started you on multiple new medications. It is very important that you take these medications and follow up with Cardiology in the outpatient setting. Your kidneys are damaged as a result of your heart disease and high blood pressure. You were evaluated by our Nephrology (kidney) team who ordered some additional tests. They would like you to closely monitor your blood pressure at home and bring a log of your readings to your follow up appointment with them. You should avoid medications that are damaging to the kidneys, such as NSAIDs including motrin, ibuprofen, Advil, aleve, etc. MEDICATION CHANGES: START: -Metoprolol succinate 25mg by mouth twice per day -Isosorbide mononitrate 30mg by mouth once per day -Hydralazine 25mg by mouth three times per day -Baby aspirin 81mg by mouth once daily -Furosemide 20mg by mouth once per day as needed for swelling/weight gain SUMMARY OF TEST RESULTS: See above PENDING TEST RESULTS: Kidney ultrasound RECOMMENDATIONS FOR FOLLOW-UP: Please follow up with a Primary Care Provider as scheduled on 11/10/2025 at 9:00am Please follow up with Cardiology and Nephrology - they will contact you with appointment dates/times OTHER INSTRUCTIONS: Seek medical attention if you have: * temperature above 101 * chest pain or trouble breathing * abdominal pain, nausea, vomiting * diarrhea, dark stools or bloody stools * any unanswered questions or concerns Call 911 if symptoms are severe. It has been a pleasure taking care of you. Please take care of yourself. If you have any questions regarding your recent hospitalization please contact [facility] and request [facility] @ [phone]. Total Time Total Time Spent Total Time Spent (In Minutes): I spent a total of 35 minutes coordinating, documenting and providing care for this patient excluding time spent in the performance of separately billed services or time spent by another provider/QHP. Supervising Physician Co-Signing Physician Notes Patient seen and examined at bedside. I discussed with patient regarding his elevated blood pressure, diagnosis of HFrEF, CKD. I discussed risks of sudden cardiac , arrhythmias, progression to ESRD; he verbalized understanding of the risks. I also discussed home blood pressure monitoring and regular follow- up with PCP/cardiology for optimizing the medication regimen. Discussion was done with cardiology regarding discharge; medication to be prescribed as per their recommendation. I have reviewed the advanced practitioner's documentation, and I agree with, and take responsibility for the plan of care I spent a total of 30 minutes coordinating, documenting, and providing care for this patient excluding time spent in the performance of separately billed services. All of the aforementioned completed while collaborating with the assigned advanced practitioner for a full treatment plan
[2025-11-04 12:43] LABS: Protein Creatinine Ratio Urine 1.1 (0-0.2); Total Protein Urine Random 116.9 mg/dl (0-11.9)
[2025-11-04 15:26] VITALS: BP 175/110; PULSE 80; TEMP 98.1; O2SAT 98
--- NOTE | 2025-11-04 15:31 | Ultrasound Report ---
RENAL ULTRASOUND CLINICAL HISTORY: Worsening renal function. COMPARISON STUDY: None TECHNIQUE: Sonography of the kidneys and the urinary bladder was performed. FINDINGS: Both kidneys are enlarged. The right kidney measures 17 cm in maximal dimension and the lef t measures 19 cm. There is no hydronephrosis. Of note, there are innumerable cysts within both kidney s. The largest right renal cyst measures 4.5 cm. Echogenic foci within each kidney represent calcific ations, likely within cysts. Renal calculi would be difficult to exclude. Both ureteral jets were tayo ntified although the right ureteral jet was faint. No bladder abnormality is identified. Incidental n ote was made of small bilateral pleural effusions. IMPRESSION: 1. No hydronephrosis. 2. Enlarged kidneys which contain innumerable cysts. The sonographic appearance favors polycystic kid jennifer disease although other cystic renal disease is also within the differential. 3. Numerous calcifications within the kidneys, likely within the renal cysts. However, renal calculi would be difficult to exclude. 4. Small bilateral pleural effusions. ACT 112: Negative or not required by law. Electronically signed by: Jaret Walker M.D. 11/04/2025 3:29 PM
--- NOTE | 2025-11-05 06:35 | Electrocardiogram Report ---
Test Reason : Blood Pressure : */* mmHG Vent. Rate : 105 BPM Atrial Rate : 105 BPM P-R Int : 142 ms QRS Dur : 140 ms QT Int : 364 ms P-R-T Axes : 46 82 -26 degrees QTcB Int : 481 ms Sinus tachycardia Possible Left atrial enlargement Non-specific intra-ventricular conduction block Cannot rule out Anterior infarct , age undetermined T wave abnormality, consider inferior ischemia Abnormal ECG When compared with ECG of 19-May-2006 20:58, Minimal criteria for Anterior infarct are now Present QRS duration has increased Confirmed by Aaron Torres ([id number]) on 11/05/2025 6:35:24 AM Referred By: Edyta Leal Confirmed By: Aaron Torres
--- NOTE | 2025-11-05 06:35 | Electrocardiogram Report ---
Test Reason : Blood Pressure : */* mmHG Vent. Rate : 84 BPM Atrial Rate : 84 BPM P-R Int : 152 ms QRS Dur : 150 ms QT Int : 416 ms P-R-T Axes : 51 102 -21 degrees QTcB Int : 491 ms Normal sinus rhythm Possible Left atrial enlargement Rightward axis Non-specific intra-ventricular conduction block Anterior infarct Abnormal ECG When compared with ECG of 03-Nov-2025 12:18, No significant change was found Confirmed by Aaron Torres ([id number]) on 11/05/2025 6:35:49 AM Referred By: Edyta Leal Confirmed By: Aaron Torres
== END 2025-11-04 15:54 | disposition home or self-care (01) | DRG 291 ==
LOC: ED 11:48 → 2S 14:08 → SUATTDRO 14:08 → 2S 14:49